=== PATIENT | female | born 1980 | race Caucasian/White ===

== ENCOUNTER 2018-08-25 18:42 | Emergency (ER) | payer BC, MEDICAID ==
[2018-08-25] MEDS ORDERED: DEXAMETHASONE 10 MG/ML VIAL IVP ONE (19:09)
[2018-08-25] MEDS ORDERED: NS 1,000 ML IV ONE ×2 (19:09→21:16)
[2018-08-25] MEDS ORDERED: KETOROLAC 30 MG/1 ML SDV IVP ONE (19:09)
[2018-08-25] MEDS ORDERED: METOCLOPRAMIDE 10 MG/2 ML VIAL IVP ONE (19:09)
--- NOTE | 2018-08-25 19:15 | EDPHY ---
H & P Stated Complaint: Migraine x8 days Time Seen by Provider: 08/25/18 18:53 HPI/ROS: This patient complains of a migraine headache described as right frontal and stabbing in nature similar to prior migraines, 8/10 intensity currently. She has had this headache waxing waning in intensity for 8 days now. She describes 3 episodes of scintillating scotoma on day 1 day 3 and last night. Currently she has mild visual blurring which she occasionally gets with migraines. She also describes mild vertigo which is less common for her but is occasionally occurred in the past. She tried Imitrex and Phenergan and Advil last night was able to sleep but awakened with migraine this morning that persists. Today she had Advil 600 mg at 1 or 2:00 p.m. So without relief. She has associated nausea but no vomiting. Her headache is worse with movement and she denies any other exacerbating factors. Her drove her in for evaluation and treatment of the symptoms. ROS: Constitutional: No recent fevers HEENT: She describes chronic sinus symptoms are unchanged comprised of coryza and some congestion. No other HEENT complaints neuro: As per HPI. No other focal neuro complaints. No recent head trauma. Pulmonary: No complaints Cardiovascular: No complaints GI: Nausea but no vomiting. No abdominal pain. : She describes some cramping the it she attributes to her IUD. She has had intermittent cramping since that was placed a few months ago. She states this is mild in intensity with no recent changes. No urinary symptoms. Integumentary: No skin rash 10 point review of symptoms is performed and otherwise negative with exception of pertinent positives and negatives listed in HPI and ROS Source: Patient Exam Limitations: No limitations - Personal History Current Tetanus/Diphtheria Vaccine: Unsure Current Tetanus Diphtheria and Acellular Pertussis (TDAP): Unsure - Medical/Surgical History PMH: Migraine headaches since she was a child. Hx Asthma: No Hx Chronic Respiratory Disease: No Hx Diabetes: No Hx Cardiac Disease: No Hx Renal Disease: No Hx Cirrhosis: No Hx Alcoholism: No Other PMH: migraines, ,Pa[place] - Social History Smoking Status: Never smoked Alcohol Use: Occasionally Drug Use: None Additional Social History: She works in [employer] at [employer] is a mother of 3 children ages 18 months, 3 years old and 14 years old - Physical Exam Exam: Physical exam: Vital signs are normal General: Patient is in no acute distress. HEENT: Is no external evidence of trauma on exam. Eyes: Pupils are equal and reactive to light. Extraocular motions are intact. Optic fundi: Clear with no papilledema or hemorrhage. Nose atraumatic. Ears: Clear bilaterally with no hemotympanum. Oropharynx: No dental trauma or malocclusion. No intraoral lacerations. Eyes: Pupils are equal and reactive to light. Extraocular motions are intact. Optic fundi: Clear with no papilledema or hemorrhage. Lungs: Clear to auscultation bilaterally Neck: Supple no meningismus. Cardiac: Regular rate and rhythm no murmur gallop or rub. Abdomen: Soft nontender no organomegaly Neuro: GCS of 15. Cranial nerves II through XII intact. Cerebellar exam is normal as judged by symmetric rapid hand movements bilaterally. No pronator drift. No sensory or motor deficits are appreciated. Initial differential diagnosis: Migraine, tension headache, SEAMING INSPECTOR lesion, intracranial bleed Constitutional: Initial Vital Signs Heart Rate 107 H 08/25/18 18:54 Respiratory Rate 16 08/25/18 18:54 Blood Pressure 167/95 H 08/25/18 18:54 O2 Sat (%) 94 08/25/18 18:54 O2 Delivery Mode Room Air O2 (L/minute) 2 Allergies/Adverse Reactions: Sulfa (Sulfonamide Antibiotics) Allergy (Verified 05/11/18 10:19) Home Medications: Medication Instructions Recorded Flonase Nasal [place] 05/11/18 Imitrex 05/11/18 Phenergan 05/11/18 Singulair 05/11/18 Zoloft 100mg (*) 05/11/18 Ondansetron Odt [Zofran Odt] 4 - 8 mg PO Q4PRN PRN #4 tab 08/25/18 SUMAtriptan [Imitrex 50 MG (RX)] 50 - 100 mg PO Q2H PRN #6 tab 08/25/18 Medical Decision Making ED Course/Re-evaluation: IV normal saline bolus, Decadron, Phenergan, 10 mg Benadryl 25 mg and Toradol IV Patient had back esthesia after Phenergan IV treated with additional 25 mg of Benadryl and Ativan 1 mg x2 with partial relief but still persistent headache to 7/10. She is then treated with ketamine 15 mg slow IV while on a monitor. She remained stable was given supplemental nasal cannula O2 for an O2 sat briefly in the low 90s that resolved to 02 sat the mid 90s within minutes on room air, and at 2200 feels relief of her headache down to 3/10. Her nausea is also resolved. Discussion: Patient with migraine resolved with treatment here. No red flag findings on exam that would suggest SEAMING INSPECTOR infection, bleed or other concerns. However, patient her stands the need to return emergency department should she develop any significant worsening of symptoms despite treatment plan of home with [place], rest tonight, restart her Imitrex for any recurrent headaches. She will follow up with primary care physician. - Data Points Medications Given: Discontinued Medications Dexamethasone (Decadron Injection) 10 mg IVP EDNOW ONE Stop: 08/25/18 19:10 Last Admin: 08/25/18 19:28 Dose: 10 mg Diphenhydramine HCl (Benadryl Injection) 25 mg IVP EDNOW ONE Stop: 08/25/18 19:10 Last Admin: 08/25/18 19:28 Dose: 25 mg Diphenhydramine HCl (Benadryl Injection) 25 mg IVP EDNOW ONE Stop: 08/25/18 20:07 Last Admin: 08/25/18 20:10 Dose: 25 mg Sodium Chloride (Ns) 1,000 mls @ 0 mls/hr IV ONCE ONE; Wide Open PRN Reason: Protocol Stop: 08/25/18 19:10 Last Admin: 08/25/18 19:19 Dose: 1,000 mls Ketamine HCl 15 mg/ Syringe 0.3 mls @ 18 mls/hr IVP ONCE ONE Stop: 08/25/18 21:07 Last Admin: 08/25/18 21:18 Dose: Not Given Sodium Chloride (Ns) 1,000 mls @ 0 mls/hr IV ONCE ONE PRN Reason: Wide Open Stop: 08/25/18 21:17 Last Admin: 08/25/18 21:16 Dose: 1,000 mls Ketamine HCl (Ketamine) 15 mg IVP ONCE ONE Stop: 08/25/18 21:31 Last Admin: 08/25/18 21:26 Dose: 15 mg Ketorolac Tromethamine (Toradol) 30 mg IVP EDNOW ONE Stop: 08/25/18 19:10 Last Admin: 08/25/18 19:34 Dose: 30 mg Lorazepam (Ativan Injection) 1 mg IVP EDNOW ONE Stop: 08/25/18 20:07 Last Admin: 08/25/18 20:10 Dose: 1 mg Lorazepam (Ativan Injection) 1 mg IVP EDNOW ONE Stop: 08/25/18 20:25 Last Admin: 08/25/18 20:27 Dose: 1 mg Metoclopramide HCl (Reglan Injection) 10 mg IVP EDNOW ONE Stop: 08/25/18 19:10 Last Admin: 08/25/18 19:35 Dose: Not Given Promethazine HCl (Phenergan) 25 mg IVP EDNOW ONE Stop: 08/25/18 19:21 Last Admin: 08/25/18 19:31 Dose: 25 mg Departure - Departure Disposition: Home, Routine, Self-Care Clinical Impression: Migraine Qualifiers: Migraine type: with aura Status migrainosus presence: with status migrainosus Intractability: not intractable Qualified Code(s): G43.101 - Migraine with aura , not intractable, with status migrainosus Condition: Good Instructions: Migraine Headache (ED) Additional Instructions: Diagnosis: Migraine Plan: Home to rest Zofran under the tongue if needed for any recurrent nausea Imitrex if he have recurrence of your headache tomorrow or thereafter Follow up with primary care physician or if you do not have one, contact - [phone] to arrange a follow-up appointment. Referrals: NONE *PRIMARY CARE P,. [Primary Care Provider] - As per Instructions Prescriptions: Ondansetron Odt [Zofran Odt] 4 - 8 mg PO Q4PRN PRN #4 tab PRN Reason: Vomiting SUMAtriptan [Imitrex 50 MG (RX)] 50 - 100 mg PO Q2H PRN #6 tab PRN Reason: migraine
[2018-08-25] MEDS ORDERED: PROMETHAZINE HCL 25 MG/ML INJ IVP ONE (19:20)
[2018-08-25] MEDS ORDERED: LORazepam 2 MG/ML INJ IVP ONE ×2 (20:06→20:24)
[2018-08-25] MEDS ORDERED: KETAMINE IVP ONE (21:06)
[2018-08-25] MEDS ORDERED: KETAMINE 200 MG/20 ML VIAL ONE (21:14)
[2018-08-25] MEDS ORDERED: KETAMINE 200 MG/20 ML VIAL IVP ONE (21:30)
[2018-08-25 22:08] VITALS: BP 149/99
[2018-08-25] MEDS ORDERED: ONDANSETRON 4MG PREPACK#2 BTL TAKEHOME ONE (22:29)
[2018-08-27] MEDS ORDERED: IOPAMIDOL (ISOVUE-300) 100 ML BTL ONE (12:11)
== END 2018-08-25 22:47 | disposition home or self-care (01) ==
LOC: CED 18:42
DX: G43.101 Migraine with aura, not intractable, with status migrainosus (principal); E86.9 Volume depletion, unspecified; Z88.2 Allergy status to sulfonamides
CPT/HCPCS: 96374; J1100; J1200; J1885; J2060; J2550; J2765; Q9967

== ENCOUNTER → 2018-09-01 | Outpatient (CLI) | payer BC, MEDICAID | LOC: BMCIMAGING 18:27 | PROVIDERS: ATTEND Family Medicine | DX: R07.81 Pleurodynia (principal); R05 Cough | CPT/HCPCS: 71101-PO ==

== ENCOUNTER 2018-10-04 10:37 | Emergency (ER) | payer BC, MEDICAID ==
[2018-10-04] MEDS ORDERED: KETAMINE 500 MG/10 ML VIAL IVP ONE (11:11)
[2018-10-04] MEDS ORDERED: NS 1,000 ML IV ONE (11:12)
--- NOTE | 2018-10-04 11:15 | EDPHY ---
H & P Time Seen by Provider: 10/04/18 10:56 HPI/ROS: Chief complaint. Migraine headache HPI. Patient is a 38-year-old female with long history of migraine headaches and she was a teenager. She presents with 3 days of typical right frontal headache. She gets visual aura at onset. She has been using Imitrex daily with inadequate relief. She notes increased stress and begin menstrual 2 days ago. Last night she had sense of increased pain with touch generally. She feels a little bit mentally foggy. Otherwise no focal weakness paresthesias. No recent head injury or illness. On previous visit at the end of July she got migraine cocktail and had somewhat of a dystonic reaction after IV Phenergan. She got relief from fluids and ketamine. She requests IV fluids and ketamine to start. ROS 10 systems were reviewed and negative with the exception of the elements mentioned in the history of present illness Past Medical/Surgical History: Migraines, depression, cholecystectomy Social History: , nonsmoker, no alcohol Smoking Status: Never smoked Physical Exam: General Appearance: Alert well-developed female moderate distress vital signs are stable Eyes: Pupils equal and round no pallor or injection. ENT, Mouth: Mucous membranes are moist. Respiratory: There are no retractions, lungs are clear to auscultation. Cardiovascular: Regular rate and rhythm. Gastrointestinal: Abdomen is soft and nontender, no masses, bowel sounds normal. Neurological: Awake and alert, sensory and motor exams grossly normal. Skin: Warm and dry, no rashes. Musculoskeletal: Neck is supple nontender. Extremities symmetrical, full range of motion. Psychiatric: Patient is oriented X 3, there is no agitation. Constitutional: Initial Vital Signs Temperature (C) 37.2 C 10/04/18 10:43 Heart Rate 90 10/04/18 10:43 Respiratory Rate 16 10/04/18 10:43 Blood Pressure 141/96 H 10/04/18 10:43 O2 Sat (%) 94 10/04/18 10:43 O2 Delivery Mode Room Air Allergies/Adverse Reactions: Latex, Natural Rubber Allergy (Verified 10/04/18 10:43) pt reports rash Sulfa (Sulfonamide Antibiotics) Allergy (Verified 10/04/18 10:43) Pt reports "liver shut down" Home Medications: Medication Instructions Recorded Flonase Nasal [place] 05/11/18 Phenergan 05/11/18 Singulair 05/11/18 Zoloft 100mg (*) 05/11/18 Multivitamin 10/04/18 SUMAtriptan [Imitrex 50 MG (RX)] 10/04/18 Medical Decision Making Procedures: IV normal saline. Ketamine 15 mg IV ED Course/Re-evaluation: Recheck at 11:30 a.m. Patient is stable Recheck again 1145 and patient says she feels slightly weird but not sleepy. She will be given 1 mg of Ativan IV Recheck again at 12:20 p.m. Patient is resting comfortably Recheck at 12 40 and patient is feeling better but sleepy Recheck again at 1:00 p.m. And patient is feeling well and tells me she is ready to go home. Her headache is much improved. She is neurologically intact The patient, her , and I discussed treatment plan including criteria for return importance of follow-up and further evaluation. She expresses understanding and agreement Differential Diagnosis: Typical migraine headache in a patient with migraines. Previous dystonic reaction with migraine cocktail. Treated today with ketamine and Ativan and 1 L of saline with good improvement - Data Points Medications Given: Discontinued Medications Sodium Chloride (Ns) 1,000 mls @ 0 mls/hr IV EDNOW ONE; Wide Open PRN Reason: Protocol Stop: 10/04/18 11:13 Last Admin: 10/04/18 11:18 Dose: 1,000 mls Ketamine HCl (Ketamine) 15 mg IVP EDNOW ONE Stop: 10/04/18 11:12 Last Admin: 10/04/18 11:19 Dose: 15 mg Lorazepam (Ativan Injection) 1 mg IVP EDNOW ONE Stop: 10/04/18 11:50 Last Admin: 10/04/18 11:55 Dose: 1 mg Departure - Departure Disposition: Home, Routine, Self-Care Clinical Impression: Migraine headache with aura Qualifiers: Status migrainosus presence: with status migrainosus Intractability: not intractable Qualified Code(s): G43.101 - Migraine with aura, not intractable, with status migrainosus Condition: Good Instructions: Migraine Headache (ED) Additional Instructions: May use Tylenol 1000 mg every 4-6 hours, ibuprofen 600 mg every 6 hr as needed for further headache. Return for worsening symptoms. Referrals: Ade Roca MD [Primary Care Provider] - As per Instructions Thang Gardner, [Medical Doctor] - 2-3 days, call for appt.
[2018-10-04] MEDS ORDERED: LORazepam 2 MG/ML INJ IVP ONE (11:49)
[2018-10-04 13:02] VITALS: BP 129/82
== END 2018-10-04 13:08 | disposition home or self-care (01) ==
LOC: CED 10:37
DX: G43.101 Migraine with aura, not intractable, with status migrainosus (principal); E86.9 Volume depletion, unspecified; F32.9 Major depressive disorder, single episode, unspecified; Z90.49 Acquired absence of other specified parts of digestive tract
CPT/HCPCS: 96374; J2060

== ENCOUNTER 2019-04-26 08:33 | Emergency (ER) | payer MEDICAID, BC | END 2019-04-26 14:20 | disposition home or self-care (01) | LOC: CED 08:33 ==